=== PATIENT | female | born 1955 | race Hispanic/Latino ===

== ENCOUNTER → 2024-09-03 | Outpatient (CLI) | payer OTHER, MEDICAID ==
--- NOTE | 2024-09-03 16:55 | HMCIMG ---
MR SHOULDER RIGHT WO HISTORY: Incomplete rotator cuff tendon tear COMPARISON: None TECHNIQUE: MRI of the right shoulder was performed utilizing multiple pulse sequences in axial, coronal and sagittal planes. Patient was not given contrast through intravenous route. FINDINGS: No abnormal signal intensity is seen of the visualized bony structure. Hypertrophic degenerative changes are seen of the acromioclavicular joint. There is downward sloping of acromion in a medial to lateral direction encroaching upon the rotator cuff tendon and muscles. There is complete rotator cuff tendon tear with tendinous gap of 7 mm. Mild retraction of the rotator cuff muscle and tendon are noted. Small amount of fluid is seen in the subacromial-subdeltoid bursal complex. The glenoid labrum is intact. Fluid is seen in the biceps tendon sheath to suggest the biceps tenosynovitis. No appreciable amount of joint effusion is seen. IMPRESSION: 1. There is complete rotator cuff tendon tear with tendinous gap of 7 mm. Mild retraction of the rotator cuff muscle and tendon are noted. Small amount of fluid is seen in the subacromial-subdeltoid bursal complex. Biceps tenosynovitis.
== END | disposition home or self-care (01) ==
LOC: RAH 14:25
PROVIDERS: ATTEND Student in an Organized Health Care Education/Training Program
DX: M75.121 Complete rotator cuff tear or rupture of right shoulder, not specified as traumatic (principal); M19.011 Primary osteoarthritis, right shoulder; M75.21 Bicipital tendinitis, right shoulder; M62.89 Other specified disorders of muscle; M67.813 Other specified disorders of tendon, right shoulder
CPT/HCPCS: 73221